=== PATIENT | female | born 1980 | race Caucasian/White ===

== ENCOUNTER → 2018-05-12 15:48 | Outpatient (CLI) | payer OTHER, SELFPAY ==
--- NOTE | 2018-05-12 15:49 | DI.US.S_ITS ---
PROCEDURE: US OB >= 14 WEEKS FETUS INDICATIONS: ANATOMY SCAN OUTSIDE/PRIOR DATING DATA: Last menstrual period (LMP): 12/11/17. LMP-based estimated date of delivery (DILMA): 09/17/18. First dating scan (date and location): This study, 05/12/18. Estimated date of delivery (DILMA) from first dating scan: 09/10/18, based on this study. TECHNIQUE: Real-time scanning was performed of the fetus, with image documentation and biometric measurements. Endovaginal scanning: Not needed for this examination COMPARISON: None. FINDINGS: General: A single living intrauterine gestation is present. Presentation: Transverse head left. Placenta: Placental position is posterior, without previa. Amniotic fluid index: 15.6 cm, normal range is 5-24 cm. heart rate: 150 beats per minute. Maternal cervical canal: 4.1 cm cm long. Normal lower limit is 2.5 cm. biometrics: Biparietal diameter: 5.4 cm, 22 weeks 3 days Head circumference: 20.6 cm, 22 weeks 5 days Abdominal circumference: 18.0 cm, 22 weeks 6 days Femur length: 4.0 cm, 27 weeks 5 days Estimated gestational age from initial scan: not applicable. Composite gestational age from present scan: 27 weeks 5 days Estimated weight and percentile: 533 g, 91st percentile Measurement variability for biometric dating: +/- 7 days from 14 weeks to 15 weeks 6 days gestation, +/- 10 days from 16 weeks to 21 weeks 6 days gestation, +/- 2 weeks from 22 weeks to 27 weeks 6 days gestation, +/- 3 weeks for 28 weeks gestation or later. weight reference: 4500 g or EFW >90/95% is considered macrosomia or large for gestational age. EFW <10% is small for gestational age. EFW 5% or less is considered intra-uterine growth restriction. Anatomic survey: Neuro: Ventricles are non-dilated at less than 10 mm. Cisterna magna is normal at 3-11 mm. Cerebellum is normal in size and morphology. Nuchal skin fold: Normal at less than 6 mm between 14-21 weeks gestational age. Face: Nose and lips, facial profile are normal. Spine: No evidence for spina bifida. Heart: 4-chambered heart is present, with normal ventricular outflow tracts. Diaphragm: Diaphragm is intact. Stomach: Left-sided stomach is present. Kidneys: No hydronephrosis. Normal is less than 5 mm in 2nd trimester, less than 7 mm in 3rd trimester. Cord: 3-vessel cord has orthotopic insertion. Bladder: Normal in size. Extremities: All 4 extremities identified. IMPRESSION: Single living intrauterine gestation with estimated current gestational age of 22 weeks 5 days, and the delivery date therefore is projected to be centered on 09/10/18 based on this examination. If an earlier OB ultrasound exists elsewhere the measurement variability could be reduced from the current plus or -2 weeks (when the initial OB ultrasound is performed in the 22 week range of ). Dictated by: Mihir Benson M.D. on 05/12/2018 at 17:05 Approved by: Mihir Benson M.D. on 05/12/2018 at 17:09
== END ==
PROVIDERS: Visit Provider Family Medicine
DX: Z36.89 Encounter for other specified antenatal screening (principal); Z34.82 Encounter for supervision of other normal pregnancy, second trimester; Z3A.22 22 weeks gestation of pregnancy
CPT/HCPCS: 76811

== ENCOUNTER → 2018-06-18 09:42 | Outpatient (CLI) | payer OTHER, SELFPAY ==
[2018-06-18 12:35] LABS: Add Manual Diff / Slide Review NO; Basophils Percent Auto 0.2 % (0-2); Eosinophils Percent Auto 1.3 % (2-4); Hematocrit 35.6 % (36-46); Hemoglobin 11.8 g/dL (12.0-16.0); Lymphocytes Percent Auto 12.6 % (25-40); Mean Corpuscular HGB Conc 33.1 % (30-36); Mean Corpuscular Hemoglobin 29.7 PG (26-34); Mean Corpuscular Volume 89.8 fL (80-100); Monocytes Percent Auto 8.1 % (3-14); Neutrophils Absolute Auto 8800 /uL (3000-5900); Neutrophils Percent Auto 77.8 % (50-75); Platelet Count 248 X10^3/uL (150-400); Red Blood Cell Count 3.96 X10^6/uL (4.0-5.2); Red Cell Distribution Width 13.1 % (11.6-14.8); White Blood Cell Count 11.3 X10^3/uL (4.5-11.0)
[2018-06-18 12:37] LABS: GTT (PREG) 1 Hour PP 50gm Dose 80 mg/dL (76-139)
== END ==
PROVIDERS: Visit Provider Family Medicine
DX: Z34.02 Encounter for supervision of normal first pregnancy, second trimester (principal)
CPT/HCPCS: 36415; 82950; 85025

== ENCOUNTER → 2018-08-25 11:11 | Outpatient (CLI) | payer OTHER, SELFPAY ==
[2018-08-26 08:57] LABS: Strep Grp B PCR POS for Grp B Strep
== END ==
PROVIDERS: Visit Provider Family Medicine
DX: Z34.03 Encounter for supervision of normal first pregnancy, third trimester (principal); Z3A.36 36 weeks gestation of pregnancy
CPT/HCPCS: 87653

== ENCOUNTER 2018-09-11 07:32 | Observation (INO) | payer OTHER, SELFPAY ==
--- NOTE | 2018-09-11 08:20 | PM.OBHP.1 ---
OB HPI Date/Time Date of admission: 09/11/18 Date Patient Seen: 09/11/18 Time Patient Seen: 08:00 History of Present Condition Chief complaint: OBSERVATION : 3 Para: 0 Estimated Date of Delivery: 09/17/18 Estimated Gestational Age (weeks): 39w1d Narrative: Nancy Lewis is a 38 year old at 39w1d who presented for version due to breech presentation. The pt was seen in clinic yesterday and found to be breech, after being vertex position the week prior. No vaginal bleeding, contractions, LOF. Feeling baby move regularly. Indications Other reason(s) for admission: Version History of Present care: good care and initiated at week # (8, transfer of care from [place] at 18wks) Dating criteria: LMP confirmed by 2nd trimester US Ultrasounds: normal mid trimester US Obstetrical complications: none Medical complications: none Preadmission Labs Blood type: A (+) positive -: Antibody screen: negative, Cystic fibrosis screen: positive (partner tested negative), GBS status: positive, HBsAG: negative, HIV: negative, HSV 1: positive, HSV 2: negative and RPR/VDLR: negative -: Chlamydia screen: not detected and Gonorrhea screen: not detected -: Rubella: immune HCT: 35.6 HCAB: negative Integrated screen: Negative Urine: Negative 1 hr GTT: 80 Evaluation Evaluation Baseline heart rate: 150 Variability: Moderate (11-25) monitor accelerations: Present monitor decelerations: Absent Category of Tracing: I PFSH Social History Smoking Status: Never smoker Social History Smoking Status: Never smoker Meds Home Medications Medication Instructions Recorded Confirmed Type pyridoxine (vitamin B6) 25 mg 25 mg PO DAILY #30 tab 04/22/18 Rx tablet Allergies Allergy/AdvReac Type Severity Reaction Status Date / Time No Known Drug Allergies Allergy Unverified 06/18/18 09:26 Exam Narrative Exam Narrative: Gen: NAD, sitting comfortably in bed, appears well CV: RRR, no murmurs Resp: clear to auscultation bilaterally Abd: soft, gravid, nontender Ext: no edema Bedside ultrasound: Single IUP, breech presentation, cardiac activity present, subjectively normal fluid volume Assessment and Plan (1) 39 weeks gestation of : Current visit: Yes Status: Acute (2) Breech presentation: Current visit: Yes Status: Acute Plan: Plan: 38yo at 39w1d who presented for version due to breech presentation found yesterday. No significant risk factors, placenta posterior. Discussed risks vs benefits of procedure. Risks include but no limited to distress, ROM, placental abruption. Pt agrees with version, consent signed today. Will proceed. IV placed. Will give subcutaneous terbutaline prior to procedure.
[2018-09-11] MEDS: TERBUTALINE 1 MG/ML VIAL 0.25 MG SUBCUT (08:27)
--- NOTE | 2018-09-11 09:14 | P.PCN_ITS ---
Procedures Date/Time Date of procedure: 09/11/18 Time of procedure: 08:30 General Procedure description: After informed consent was obtained, the pt was placed in the supine position. FHT were in the 150s. The pt received terbutaline 10 mi nutes prior to the start. presentation was confirmed breech with spine to the maternal left. Using external pressure, with lifting of the buttocks and pressure around the head, neck, and spine, attempted to rotate the fetus. Over a period of 30+ minutes, more than 10 attempts were made that were unsuccessful. The fetus would not rotate more than a few degrees out of breech breech position. The procedure was then terminated due to no success, with the pt agreeing with stopping. Discussed risks vs benefits of continuing the with breech presentation. The pt prefers to allow to go to her due date, with plan for primary after that time if still breech presentation. The pt plans to try multiple at-home methods in addition to acupuncture. Will plan on primary on 09/18 or 09/19 if still breech. Complications: none
== END 2018-09-11 10:15 | disposition home or self-care (01) ==
PROVIDERS: Admitting Provider Family Medicine; Visit Provider Family Medicine
DX: O32.1XX0 Maternal care for breech presentation, not applicable or unspecified (principal); Z3A.39 39 weeks gestation of pregnancy
CPT/HCPCS: 59025; 59050; 59412; 76815; 96372; G0378; G0379

== ENCOUNTER 2018-09-19 05:47 | Inpatient (IN) | payer OTHER, SELFPAY ==
[2018-09-19] VITALS (11 sets, daily range): BP systolic 108–131; BP diastolic 66–90; PULSE 60–86; RESP 10–29; TEMP 35.9–36.4; O2SAT 97–100
[2018-09-19] MEDS: LACTATED RINGERS 1,000 ML 100 ML IV ×3 (06:30→10:15)
[2018-09-19 06:56] LABS: Add Manual Diff / Slide Review NO; Basophils Absolute Auto 100 /uL (0-100); Basophils Percent Auto 0.5 % (0-2); Eosinophils Absolute Auto 200 /uL (0-450); Eosinophils Percent Auto 1.8 % (2-4); Hematocrit 40.6 % (36-46); Hemoglobin 13.5 g/dL (12.0-16.0); Lymphocytes Absolute Auto 1900 /uL (1100-4500); Lymphocytes Percent Auto 18.5 % (25-40); Mean Corpuscular HGB Conc 33.3 % (30-36); Mean Corpuscular Hemoglobin 29.4 PG (26-34); Mean Corpuscular Volume 88.3 fL (80-100); Monocytes Absolute Auto 1000 /uL (0-900); Neutrophils Absolute Auto 7200 /uL (1500-7000); Neutrophils Percent Auto 69.2 % (50-75); Platelet Count 233 X10^3/uL (150-400); Red Cell Distribution Width 13.9 % (11.6-14.8); White Blood Cell Count 10.4 X10^3/uL (4.5-11.0)
--- NOTE | 2018-09-19 07:42 | PM.PREOP ---
Pre-operative Note Interval Note History & Physical reviewed/Exam performed by Physician: Yes Changes to H&P: No
--- NOTE | 2018-09-19 07:43 | P.HPOB_ITS ---
OB HPI Date/Time Date of admission: 09/19/18 Date Patient Seen: 09/19/18 Time Patient Seen: 07:35 History of Present Condition Chief complaint: [id number] PRIMARY : 3 Para: 0 Estimated Date of Delivery: 09/17/18 Estimated Gestational Age (weeks): 40w2d Narrative: Nancy Lewis is a 38 year old at 40w2d who presented for primary for breech presentation. Pt has been feeling her baby move regularly. No contractions, vaginal bleeding, LOF. Indications Operative indications ( section): breech presentation History of Present care: initiated at week # (8, transfer from [place] at 18 weeks) Dating criteria: LMP confirmed by 2nd trimester US Ultrasounds: normal mid trimester US Obstetrical complications: none Medical complications: none Preadmission Labs Blood type: A (+) positive -: Antibody screen: negative, Cystic fibrosis screen: positive (partner tested negative), GBS status: positive, HBsAG: negative, HIV: negative, HSV 1: positi ve, HSV 2: negative and RPR/VDLR: negative -: Chlamydia screen: not detected and Gonorrhea screen: not detected -: Rubella: immune HCT: 35.6 HCAB: negative Integrated screen: Negative Urine: Negative 1 hr GTT: 80 Evaluation Evaluation Baseline heart rate: 150 Variability: Moderate (11-25) monitor accelerations: Present monitor decelerations: Absent Category of Tracing: I Laboratory results: Laboratory Tests 09/19/18 06:15 WBC 10.4 RBC 4.60 Hgb 13.5 Hct 40.6 MCV 88.3 MCH 29.4 MCHC 33.3 RDW 13.9 Plt Count 233 Neut % (Auto) 69.2 Lymph % (Auto) 18.5 L [place] % (Auto) 10.0 Eos % (Auto) 1.8 L Baso % (Auto) 0.5 Neut # (Auto) 7200 H Lymph # (Auto) 1900 [place] # (Auto) 1000 H Eos # (Auto) 200 Baso # (Auto) 100 Comments: Confirmed breech presentation with bedside ultrasound [facility] Social History Smoking Status: Never smoker Social History Smoking Status: Never smoker Meds Home Medications Medication Instructions Recorded Confirmed Type pyridoxine (vitamin B6) 25 mg 25 mg PO DAILY #30 tab 04/22/18 Rx tablet Allergies Allergy/AdvReac Type Severity Reaction Status Date / Time No Known Drug Allergies Allergy Unverified 06/18/18 09:26 Exam Narrative Exam Narrative: Gen: NAD, sitting comfortably in bed, appears well CV: RRR, no murmurs Resp: clear to auscultation bilaterally Abd: soft, gravid, nontender, nondistended Ext: trace edema bilaterally Objective Labs Result Diagrams: 09/19/18 06:15 Labs: Laboratory Results - last 24 hr 09/19/18 06:15 WBC 10.4 RBC 4.60 Hgb 13.5 Hct 40.6 MCV 88.3 MCH 29.4 MCHC 33.3 RDW 13.9 Plt Count 233 Neut % (Auto) 69.2 Lymph % (Auto) 18.5 L [place] % (Auto) 10.0 Eos % (Auto) 1.8 L Baso % (Auto) 0.5 Neut # (Auto) 7200 H Lymph # (Auto) 1900 [place] # (Auto) 1000 H Eos # (Auto) 200 Baso # (Auto) 100
[2018-09-19] MEDS: CEFAZOLIN 2 GM/100 ML FROZ.PIGGY IV (07:50)
--- NOTE | 2018-09-19 08:27 | SUR.OPER ---
Viable male delivered at 0826. Cord blood tubes x2 and placenta sent with L&D RN.
[2018-09-19] MEDS: fentaNYL 100 MCG/2 ML INJ 50 MCG IV ×2 (09:14→09:32)
[2018-09-19] MEDS: HYDROMORPHONE 2 MG INJ 0.5 MG IV ×3 (09:18→09:44)
--- NOTE | 2018-09-19 09:27 | SUR.PHASEI ---
Surgeon and dulla present, desires more pain medication
--- NOTE | 2018-09-19 09:34 | SUR.PHASEI ---
Doule with patient, talking, showing her pictures of the baby.pain 4/10. Denies nausea, ice given.
--- NOTE | 2018-09-19 09:48 | SUR.PHASEI ---
Tolerating ice chips well from doule. Declines to start PO food and medication. Tearful/emotional. Able to converse.
--- NOTE | 2018-09-19 10:02 | SUR.PHASEI ---
Transported to w/monitoring - stable. Awake, drowsy, acknowledges pain 09/21. family at bedside. Janeth and RN present- decline need for me to stay longer. Skin warm and dry, resp even and regular.
[2018-09-19] MEDS: OXYCODONE/ACETAMINOPHEN 5/325 TABLET 2 TAB PO ×2 (10:45→15:08)
--- NOTE | 2018-09-19 11:06 | P.OP_ITS ---
Operative Date/Time/Diagnoses Date of procedure: 09/19/18 Time of procedure: 07:45 Pre-op diagnosis: 40 weeks gestation Breech presentation Post-op diagnosis: same Procedure & Clinicians Procedure: Primary Same procedure as scheduled: Yes Indications: Breech presentation Surgeon: Kandy Renteria Supervisor/Port Director: Ellen Barnes Click Yes if Unassisted: No Anesthesia Type: General Operative Notes Findings: Normal uterus, ovaries, and tubes Closure Type: primary Specimen(s): none sent Applied: catheter Estimated Blood Loss (mL): 750 Blood products transfused: none Procedure in detail: OPERATIVE COURSE: The patient was taken to the operating room where spinal anesthesia was placed. She was then prepared and draped in the normal sterile fashion in the dorsal supine position with a leftward tilt. The pt continued to have pain with testing, and general anesthesia was then used for surgery. A Pfannensteil skin incision was then made with the scalpel and carried through to the underlying layer of fascia with the scalpel. The fascia was incised in the midline and the incision extended laterally bluntly. The inferior aspect of the fascial incision was then grasped with Catarino clamps, elevated, and the underlying rectus muscles dissected off bluntly and sharply where needed. The rectus muscles were then in the midline, and the peritoneum was identified and entered bluntly. The peritoneal incision was then extended with good visualization of the bladder. The bladder blade was then inserted and the vesicouterine peritoneum identified, grasped with pick-ups and entered sharply with the Metzenbaum scissors. The incision was then extended laterally and the bladder flap created digitally. The bladder blade was then reinserted and the lower uterine segment incised in a transverse fashion with the scalpel. The uterine incision was then extended superolaterally by pulling superolaterally on both sides. Membranes were ruptured and fluid was clear. The bladder blade was removed. The infants buttocks was delivered with fundal pressure. The legs were then delivered, and the anterior arm removed. The baby was then rotated, and the other arm delivered. A wet towel was then wrapped around the , and the head delivered by keeping the head flexed and lifting the 's body toward maternal chest. The nose and mouth were suctioned with bulb suction and the cord was clamped and cut. The infant was handed off to the waiting nursing staff. Cord blood was collected for Rh status. The placenta was then delivered with gentle cord traction. The uterus was then cleared of all clots and debris. The uterine incision was repaired with O- Vicryl in a running, locked fashion. A second layer of the same suture was used for imbrication. A [id number] with O-Vicryl at the left corner of the incision was then used to obtain excellent hemostasis. The gutters were cleared of all clots. Hysterotomy was investigated and found to be hemostatic. The peritoneum was closed with 3-O Vicryl. The fascia was reapproximated with O-Vicryl in a running fashion. The subcutaneous tissue was reapproximated with 3-O Vicryl. The skin was closed with 4-O Vicryl. ROM APPEARANCE: Clear BABY A DELIVERY TIME: 8:29 BABY A OUTCOME: Viable BABY A SEX: Male BABY A WEIGHT: 9lb3oz BABY A NUCHAL CORD: No BABY A # CORD VESSELS: 3 BABY A 1 MINUTE: 7 BABY A 5 MINUTES: 9 PLACENTA DELIVERY TIME: 8:31 PLACENTAL DELIVERY TYPE: Spontaneous PLACENTA APPEARANCE: Intact COMPLICATIONS: None SPONGE AND NEEDLE COUNTS: Correct x3. DRESSING: Aquacel ANTICOAGULATION: SCDs applied prior to Surgery: Yes Preop antibiotics given (see MAR). The patient was taken to recovery room having tolerated procedure well. Complications: none Condition: stable Disposition: PACU Plan for aftercare: Normal care support CBC in the AM
[2018-09-19] MEDS: KETOROLAC 30 MG/ML VIAL IV ×2 (14:59→21:00)
[2018-09-19] MEDS: OXYCODONE/ACETAMINOPHEN 5/325 TABLET 1 TAB PO (22:11)
[2018-09-20] MEDS: KETOROLAC 30 MG/ML VIAL IV (02:59)
[2018-09-20 06:43] LABS: Add Manual Diff / Slide Review NO; Basophils Absolute Auto 0 /uL (0-100); Basophils Percent Auto 0.2 % (0-2); Eosinophils Absolute Auto 100 /uL (0-450); Eosinophils Percent Auto 0.8 % (2-4); Hematocrit 28.1 % (36-46); Hemoglobin 9.2 g/dL (12.0-16.0); Lymphocytes Absolute Auto 2000 /uL (1100-4500); Lymphocytes Percent Auto 11.2 % (25-40); Mean Corpuscular HGB Conc 32.8 % (30-36); Mean Corpuscular Hemoglobin 29.1 PG (26-34); Mean Corpuscular Volume 88.6 fL (80-100); Monocytes Absolute Auto 1200 /uL (0-900); Monocytes Percent Auto 6.5 % (3-14); Neutrophils Absolute Auto 14700 /uL (1500-7000); Neutrophils Percent Auto 81.3 % (50-75); Platelet Count 191 X10^3/uL (150-400); Red Blood Cell Count 3.17 X10^6/uL (4.0-5.2)
--- NOTE | 2018-09-20 08:28 | PM.OBPN.1 ---
Subjective - OB Patient comments: no complaints, pain well controlled, tolerating diet and flatus present baby status: doing well and nursing well feeding status: exclusively breast feeding Narrative: Pt is doing well this morning. She is with excellent latch, no nipple pain. Her pain is well controlled, minimal right-sided incisional pain. Her lochia is decreasing appropriately. She has not yet voided, her yee was just removed this morning. She was able to stand at bedside last night. She is passing flatus. Date Patient Seen: 09/20/18 Time Patient Seen: 08:15 Exam Vital Signs (past 8 hours): Oxygen Delivery Method Room Air Narrative Exam Narrative: Gen: NAD, laying comfortably in bed, appears well CV: RRR, no murmurs Resp: clear to auscultation bilaterally Abd: soft, slightly distended, appropriately tender, fundus firm and below the umbilicus, normoactive bowel sounds Ext: no edema Objective Labs Result Diagrams: 09/20/18 06:15 Labs: Laboratory Results - last 24 hr 09/20/18 06:15 WBC 18.0 H D RBC 3.17 L Hgb 9.2 L Hct 28.1 L MCV 88.6 MCH 29.1 MCHC 32.8 RDW 14.0 Plt Count 191 Neut % (Auto) 81.3 H Lymph % (Auto) 11.2 L [place] % (Auto) 6.5 Eos % (Auto) 0.8 L Baso % (Auto) 0.2 Neut # (Auto) 09952 H Lymph # (Auto) 2000 [place] # (Auto) 1200 H Eos # (Auto) 100 Baso # (Auto) 0 Assessment & Plan (1) Breech presentation: Status: Acute Current Visit: Yes (2) 40 weeks gestation of : Status: Acute Current Visit: Yes (3) S/P : Status: Acute Current Visit: Yes Plan Comments: 38yo POD#1 s/p primary for breech presentation. Pt doing well thus far. Has not yet ambulated or voided due to yee just being removed. Abdomen slightly distended, discussed importance of ambulation today to help with bowel motility. - Normal /postoperative care - support - Iron supplement for anemia - Encouraged ambulation Time Spent With Patient Total time spent is greater than 50% in coordination of care (as documented) at patient's floor/unit and/or counseling patient: 15-24 minutes
[2018-09-20 08:30] VITALS: TEMP 36.8
[2018-09-20] MEDS: OXYCODONE/ACETAMINOPHEN 5/325 TABLET 2 TAB PO ×4 (08:30→21:04)
[2018-09-20] MEDS: IBUPROFEN 600 MG TABLET PO ×3 (09:50→21:04)
[2018-09-20 17:13] VITALS: TEMP 37.4
[2018-09-21] MEDS: OXYCODONE/ACETAMINOPHEN 5/325 TABLET 2 TAB PO ×3 (01:00→14:06)
[2018-09-21] MEDS: IBUPROFEN 600 MG TABLET PO ×2 (04:04→14:05)
[2018-09-21] MEDS: FERROUS GLUCONATE 324 MG TABLET PO (08:53)
[2018-09-21] MEDS: PRENATAL VIT,CALC/IRON/FOLIC 1 TABLET 1 TAB PO (08:53)
[2018-09-21] MEDS: LANOLIN OINT 7 GM 1 APPLIC TOP (08:57)
[2018-09-21] MEDS: DOCUSATE 250 MG CAPSULE PO (08:58)
--- NOTE | 2018-09-21 09:57 | P.DS_ITS ---
Discharge Providers Date of admission: 09/19/18 05:47 Discharge Date: 09/21/18 Consults: 09/19/18 10:25 Consult to [employer] Worker Routine Comment: Discharge provider: Kandy Renteria MD Summary Date Patient Seen: 09/21/18 Time Patient Seen: 09:30 Procedures: Primary Hospital Course: The patient presented for primary for breech presentation. Due to the spinal not being adequate, she did have to go under general anesthesia for the surgery. The surgery was without complications, and the patient recovered well immediately after. She delivered a viable baby boy, weight 9lb3oz. In the , there were no complications. At the time of discharge, the patient was voiding, ambulating, and passing flatus without difficulty. Her lochia was decreasing appropriately. She was breast-feeding with excellent latch and no nipple pain. Her pain was adequately controlled. She will be discharged home to follow up in 1 week for incision check. She is undecided regarding control, but is considering the Mirena IUD. Peripartum Data Infant Delivery Method: Section Procedures: Primary complications: none [place] 1: Gender: Male Disposition of : home Discharge Diagnosis (1) Breech presentation: Status: Acute (2) 40 weeks gestation of : Status: Acute (3) S/P : Status: Acute Status at Discharge Cognitive/behavioral status at discharge: oriented Functional status at discharge: independent ambulation Overall status at discharge: patient is progressing back to baseline Time Spent with Patient Total time spent providing and/or coordinating discharge services: Greater than 30 minutes Specific discharge activities: No intercourse for 6 weeks No driving for 2 weeks Objective Labs Result Diagrams: 09/20/18 06:15 Discharge Plan Discharge Med Rec/Prescriptions Prescriptions: New acetaminophen 325 mg Tablet 650 mg PO Q6HR PRN (Reason: As Needed For Fever/Mild Pain) Qty: 30 RF: 0 ibuprofen 600 mg Tablet 600 mg PO Q6HR PRN (Reason: As Needed For Fever/Mild Pain) Qty: 30 RF: 0 docusate sodium 250 mg Capsule 250 mg PO DAILY Qty: 30 RF: 0 ferrous gluconate 324 mg (38 mg iron) Tablet 324 % PO DAILY Qty: 30 RF: 0 Yzb-V-Sknapr Cream 1 applic topical PRN PRN (Reason: ) Qty: 15 RF: 0 Prenatabs Rx 29 mg iron- 1 mg Tablet 1 tab PO DAILY Qty: 30 RF: 0 oxycodone-acetaminophen 5-325 mg Tablet 2 tab PO Q4HR PRN (Reason: Pain, Severe (7-10)) Qty: 40 RF: 0 Discontinued pyridoxine (vitamin B6) [Vitamin B-6] 25 mg tablet 25 mg PO DAILY Qty: 30 RF: 5 Follow up/Referrals: Kandy Renteria MD [Physician] - 09/26/18 11:45 am Discharge Orders: Discharge (Order); Ordered 09/21/18 Ordered By: Kandy Renteria Provider Discharge Instructions Diet: Diet as Tolerated and Regular Activity: No intercourse for 6 weeks Remember to walk daily No driving until off narcotic pain medication and able to rotate easily in car, usually 2 weeks Skin/Wound/Dressing Care Dressing: Okay to shower with dressing on Will remove at appointment in 1 week Visit Report/Discharge Packet Instructions: DI for Discharge Data Attending Provider: Kandy Renteria Admit Date/Time: 09/19/18 05:47
[2018-09-21 10:25] VITALS: BP 111/77; PULSE 88; RESP 16; TEMP 36.9
[2018-09-21 14:05] VITALS: TEMP 36.9
[2018-09-21 14:06] VITALS: TEMP 36.9
== END 2018-09-21 15:00 | disposition home or self-care (01) | DRG 787 ==
PROVIDERS: Admitting Provider Family Medicine; Visit Provider Family Medicine
PROC: 10D00Z1 Extraction of Products of Conception, Low, Open Approach (ICD-10-PCS; CPT 59514; principal; 2018-09-19 07:45)
DX: O32.1XX0 Maternal care for breech presentation, not applicable or unspecified (principal); D62 Acute posthemorrhagic anemia; Z3A.40 40 weeks gestation of pregnancy; Z37.0 Single live birth; O99.824 Streptococcus B carrier state complicating childbirth
CPT/HCPCS: 36415; 59025; 59050; 59510; 59514; 85025; 86850; 86900; 86901; J0330; J0690; J1100; J1170; J1885; J2274; J2405; J2590; J2704; J3010

== ENCOUNTER → 2020-10-06 09:43 | Outpatient (CLI) | payer OTHER, SELFPAY ==
--- NOTE | 2020-10-06 09:47 | DI.US.S_ITS ---
PROCEDURE: US PELVIC COMPLETE INDICATIONS: abd cramping/bloating, check on IUD placement TECHNIQUE: Real-time scanning was performed of the pelvic organs, with image documentation. Additional endovaginal scanning was necessary due to incomplete visualization of the adnexal and endometrial structures by transabdominal scanning. COMPARISON: None. FINDINGS: Uterus: Uterus is normal in size at 4.5 x 3.8 x 5.1 cm. An IUD is seen at its expected location. The IUD obscures visualization of the endometrial stripe. Ovaries: The right ovary measures 3.4 x 1.8 x 1.9 cm and demonstrates a complex cyst with surrounding vascular flow that measures 9 x 13 x 16 mm. The left ovary measures 2.2 x 2.3 x 1.4 cm. The ovaries otherwise have a normal sonographic appearance. No adnexal masses are seen. Normal appearing arterial waveforms are confirmed to each ovary. Other: Moderate free fluid can be seen within the cul-de-sac and within the left adnexa. IMPRESSION: These imaging findings are most compatible with rupture of a right ovarian hemorrhagic cyst. In this patient with IUD, differential diagnosis would also include ectopic , yet this is considered to be much less likely. Please correlate with patient history/beta hCG, if clinically appropriate. At clinical discretion, a followup pelvic ultrasound could be considered in 6 weeks to assure resolution/ improvement. The IUD is seen at its expected location. Dictated by: Adam Kirkpatrick M.D. on 10/06/2020 at 11:02 Approved by: Adam Kirkpatrick M.D. on 10/06/2020 at 11:04
== END ==
PROVIDERS: PCP Family Medicine; Referring Provider Family Medicine; Visit Provider Family Medicine
DX: Z30.431 Encounter for routine checking of intrauterine contraceptive device (principal); R10.9 Unspecified abdominal pain; R14.0 Abdominal distension (gaseous); N83.291 Other ovarian cyst, right side
CPT/HCPCS: 76856

== ENCOUNTER → 2023-10-14 07:48 | Outpatient (CLI) | payer OTHER, SELFPAY ==
--- NOTE | 2023-10-14 07:51 | DI.US.S_ITS ---
PROCEDURE: US PELVIC COMPLETE INDICATIONS: INTRAUTERINE DEVICE PLACEMENT CHECK TECHNIQUE: Real-time scanning was performed of the pelvic organs, with image documentation. Additional endovaginal scanning was necessary due to incomplete visualization of the adnexal and endometrial structures by transabdominal scanning. COMPARISON: [facility], US, US PELVIC COMPLETE, 10/06/2020, 9:47. FINDINGS: Uterus: Uterus is anteverted and normal in size at 5.6 x 3.0 x 4.3 cm. The myometrium is heterogeneous. The endometrium measures 2.8 mm combined thickness. There is an IUD in expected position. T there is trace amount of mildly complex fluid in endometrium. Ovaries: The right ovary measures 4.1 x 1.2 x 2.0 cm, with a calculated ovarian volume of 4.8 cc. The left ovary measures 2.3 x 1.5 x 1.5 cm, with a calculated ovarian volume of 2 point cc. The ovaries have a normal sonographic appearance. Less than 12 follicles can be seen in each ovary. No adnexal masses are seen. Other: No pathologic free abdominal or pelvic fluid. IMPRESSION: 1. IUD in appropriate position. 2. Trace mildly complex fluid in endometrium. We strive to produce accurate, complete, and clear reports of imaging services. To assist us in improving patient care, this report was composed using standard report templates and voice recognition software. Therefore, it may contain abnormal punctuation, insertions and/or omissions. Occasional wrong-word or sound-alike substitutions may occur. Though we review the report and make efforts to correct it, we do recommend that the report be read carefully in proper context to recognize any text inaccuracies. Dictated by: Kian Vidal M.D. on 10/14/2023 at 10:25 Approved by: Kian Vidal M.D. on 10/14/2023 at 10:50
--- NOTE | 2023-10-14 07:51 | DI.RAD.S_ITS ---
PROCEDURE: XR PELVIS 1-2V INDICATIONS: pelvic pain TECHNIQUE: 1 view(s) of the pelvis acquired. COMPARISON: None. FINDINGS: Bones: Evaluation is limited on a single view. Within these limitations, no definite fracture. No suspicious bony lesions. Bilateral femoroacetabular joint spaces are symmetric. Soft tissues: Visualized bowel gas pattern is normal. No suspicious soft tissue calcifications. IUD projects over the midline pelvis. IMPRESSION: Evaluation is limited on a single view. Within these limitations, no definite fracture. If clinical symptoms persist, consider repeat radiograph in 10-14 days versus cross-sectional imaging. Dictated by: Baltazar Galvan M.D. on 10/14/2023 at 8:48 Approved by: Baltazar Galvan M.D. on 10/14/2023 at 8:49
[2023-10-14 09:42] LABS: Add Manual Diff / Slide Review NO; Basophils Absolute Auto 100 /uL (0-100); Eosinophils Absolute Auto 400 /uL (0-450); Eosinophils Percent Auto 6.1 % (2-4); Hematocrit 41.3 % (36-46); Hemoglobin 14.1 g/dL (12.0-16.0); Lymphocytes Absolute Auto 1700 /uL (1100-4500); Lymphocytes Percent Auto 24.8 % (25-40); Mean Corpuscular HGB Conc 34.2 % (30-36); Mean Corpuscular Hemoglobin 30.1 PG (26-34); Mean Corpuscular Volume 88.1 fL (80-100); Monocytes Absolute Auto 1000 /uL (0-900); Monocytes Percent Auto 14.5 % (3-14); Neutrophils Absolute Auto 3600 /uL (1500-7000); Neutrophils Percent Auto 53.6 % (50-75); Platelet Count 272 X10^3/uL (150-400); Red Blood Cell Count 4.69 X10^6/uL (4.0-5.2); Red Cell Distribution Width 13.3 % (11.6-14.8); White Blood Cell Count 6.7 X10^3/uL (4.5-11.0)
[2023-10-14 10:00] LABS: Alanine Aminotransferase 20 IU/L (<35); Albumin Globulin Ratio 1.1 (1.0-2.8); Alkaline Phosphatase 51 U/L (38-126); Aspartate Aminotransferase 27 IU/L (14-36); BUN Creatinine Ratio 15.7 (6-22); Bilirubin Total 0.4 mg/dL (0.2-1.3); Blood Urea Nitrogen 13 mg/dL (7-17); Calcium 8.9 mg/dL (8.4-10.2); Carbon Dioxide 29 mmol/L (22-32); Chloride 106 mmol/L (98-107); Estimated Glomerular Filt Rate > 60 mL/min (>60); Globulin 3.5 g/dL (1.7-4.1); Glucose 61 mg/dL (70-100); HEMOLYSIS < 15 (0-50); Potassium 3.9 mmol/L (3.4-5.1); Sodium 140 mmol/L (137-145); Total Protein 7.5 g/dL (6.3-8.2)
[2023-10-14 10:27] LABS: TSH w/ Reflex to FT4 1.41 uIU/mL (0.47-4.68)
== END ==
PROVIDERS: PCP Family Medicine; Referring Provider Family Medicine; Visit Provider Family Medicine
DX: T83.32XA Displacement of intrauterine contraceptive device, initial encounter (principal); R10.2 Pelvic and perineal pain; R53.83 Other fatigue
CPT/HCPCS: 36415; 72170; 76830; 76856; 80053; 84443; 85025